=== PATIENT | female | born 2000 | race Caucasian/White ===

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

== ENCOUNTER → 2021-09-08 | Emergency (ER) | payer OTHER ==
[~2021-09-08] VITALS: Ht 149.9 cm; Wt 53.2 kg
[~2021-09-08] MED LIST: BUSCAPINA PO; GABA-1216 PO
[2021-09-08 16:28] VITALS: BP 119/68
== END | disposition home or self-care (01) ==
LOC: EMS 16:21
DX: R21 Rash and other nonspecific skin eruption (principal); Z53.21 Procedure and treatment not carried out due to patient leaving prior to being seen by health care provider